=== PATIENT | female | born 1995 | race Caucasian/White ===

== ENCOUNTER 2017-09-08 06:40 | Day surgery (SDC) | payer OTHER ==
[2017-09-08] MEDS ORDERED: MIDAZOLAM 2 MG/2 ML INJ ONE (07:14)
[2017-09-08] MEDS ORDERED: SUCCINYLCHOLINE CHLORIDE INJ 200 MG/10 ML VIAL ONE (07:15)
[2017-09-08] MEDS ORDERED: LIDOCAINE 2% INJ-PF (20 MG/ML) 10 ML AMPUL ONE (07:15)
[2017-09-08] MEDS ORDERED: DEXAMETHASONE SOD PHOS INJ 10 MG/1 ML VIAL ONE (07:15)
[2017-09-08] MEDS ORDERED: ONDANSETRON HCL INJ/PF 4 MG/2 ML SDV ONE (07:15)
[2017-09-08] MEDS ORDERED: PROPOFOL INJ 200 MG/20 ML VIAL IV ONE (07:15)
[2017-09-08] MEDS ORDERED: FENTANYL CITRATE INJ/PF 100 MCG/2 ML AMPUL ONE (07:15)
[2017-09-08] MEDS ORDERED: BUPIVACAINE HCL 0.5%/EPI 1:200000 INJ 1.8 ML CARTRIDGE ONE (07:16)
[2017-09-08] MEDS ORDERED: OXYMETAZOLINE HCL 0.05% NASAL SPRAY 15 ML BOTTLE ONE (07:17)
[2017-09-08] MEDS ORDERED: OXYCODONE-ACETAMINOPHEN 5-325 MG TABLET ONE (08:53)
--- NOTE | 2017-09-08 20:19 | SURGICARE OPERATIVE REPORT E ---
[facility] Operative Report NAME: BORIS BOLAÑOS AGE: 22Y DATE OF SURGERY: 09/08/2017 ROOM: PREOPERATIVE DIAGNOSES: 1. RECURRENT ACUTE TONSILLITIS. 2. CHRONIC TONSILLITIS. 3. BILATERAL TONSILLAR HYPERTROPHY. POSTOPERATIVE DIAGNOSES: 1. RECURRENT ACUTE TONSILLITIS. 2. CHRONIC TONSILLITIS. 3. BILATERAL TONSILLAR HYPERTROPHY. OPERATION: Bilateral tonsillectomy, patient age greater than 12. SURGEON: DENISHA CARRILLO D.O. ANESTHESIA: General endotracheal tube. ANESTHESIA STAFF: TONY Garnica. ESTIMATED BLOOD LOSS: 5 mL. FLUIDS: 800 mL. COMPLICATIONS: None. DRAINS: None. SPONGE COUNT: Verified. MATERIALS FORWARDED SPECIMEN: Left and right tonsillar tissue. FINDINGS: 1. Tonsils were noted to be 2 to 3+ in size, were cryptic in appearance and tonsillar debris was noted bilateral. 2. The soft palatal tissues were redundant in nature and the uvula was otherwise unremarkable in appearance. INDICATIONS: This is a 22-year-old white female who was seen and evaluated in the [facility] office. The patient had been referred for and she complained of a history consistent with acute recurrent tonsillitis episodes each year, requiring antibiotic treatment over the years. With these episodes, she experiences significant sore throat discomfort and poor p.o. intake. The patient also has a history of chronic tonsillitis symptoms, with symptoms consistent with keratosis pharyngeus over the years. Clinically, the patient is also noted to have tonsillar hypertrophy. After extensive discussion with the patient, recommendation and plan was made to proceed with a tonsillectomy. The procedure and all of its risks and complications were all discussed in detail with the patient. She voiced an understanding of the described surgical plan, agreed to proceed and consent was obtained. PROCEDURE: The patient was taken to the main operating room and placed on the operating room table in the supine position. Appropriate monitors were placed. Using mask and IV access, general anesthesia was induced. The patient was next transorally intubated without difficulty. The patient was rotated 90 degrees and positioned for tonsil surgery. The patient's lips, teeth, tongue and inside of the mouth were inspected and noted to be without defects. There was a mouth gag inserted. It was opened, and the patient was placed into suspension. There was a soft catheter placed through the patient's nose that was used to suspend the soft palate. Findings are as noted above. An injection of Marcaine with epinephrine was used for local anesthetic. At this point, the plasma J-hook device was used to dissect and remove tonsillar tissue on each side. This device was also used to provide adequate hemostasis. Saline irritation was performed and suctioned. There was adequate hemostasis noted. The soft catheter was next released and removed from the patient's nose. The mouth gag was removed from the patient's mouth without difficulty. There was no damage to the lips, teeth, tongue, gums, or inside of the mouth. The patient was then returned to the anesthesia staff and was allowed to emerge from general anesthesia. The patient was extubated in the main operating room and was then transported to the post-anesthesia recovery unit in stable condition. There were no complications. DICTATING PHYSICIAN: DENISHA CARRILLO D.O. [id number] PHY#: [id number] ID: [id number] JOB#: [id number] ACCT: [id number] cc:DENISHA CARRILLO D.O. >
== END 2017-09-08 09:28 | disposition home or self-care (01) ==
LOC: SC 06:40
PROVIDERS: ATTEND Otolaryngology
PROC: 0CTPXZZ Resection of Tonsils, External Approach (ICD-10-PCS; principal; 2017-09-08 07:30)
DX: J03.91 Acute recurrent tonsillitis, unspecified (principal); J35.01 Chronic tonsillitis; G47.8 Other sleep disorders; R06.83 Snoring; D64.9 Anemia, unspecified
CPT/HCPCS: 88304 ×2; 42826; J2250; J3490 ×2; J3010; J0330; J2405; J2704; J1100; 170

== ENCOUNTER 2017-09-09 11:37 | Emergency (ER) | payer OTHER ==
[2017-09-09] MEDS ORDERED: ONDANSETRON 4 MG TAB.RAPDIS PO ONE (12:35)
--- NOTE | 2017-09-09 12:41 | ER Document Report ---
HPI - HPI Patient complains to provider of: Vomiting Pain Level: 4 Context: Patient is a 22-year-old female presenting to the emergency department for vomiting. Patient is 1 day status post tonsillectomy. Patient denies any bleeding. But is unable to tolerate any p.o.'s. No fever. Associated Symptoms: None Exacerbated by: Food Relieved by: Denies Similar symptoms previously: No Recently seen / treated by doctor: Yes - ROS Systems Reviewed and Negative: Yes All other systems reviewed and negative - EENT EENT: REPORTS: Sore Throat Past Medical History - General Information source: Patient, Relative - Social History Smoking Status: Never Smoker Frequency of alcohol use: None Lives with: Family Family History: Reviewed & Not Pertinent Patient has suicidal ideation: No Patient has homicidal ideation: No - Past Medical History Cardiac Medical History: Denies: Hx Heart Attack, Hx Hypertension Pulmonary Medical History: Denies: Hx Asthma Neurological Medical History: Denies: Hx Cerebrovascular Accident, Hx Seizures Renal/ Medical History: Denies: Hx Peritoneal Dialysis GI Medical History: Denies: Hx Hepatitis, Hx Hiatal Hernia, Hx Ulcer Infectious Medical History: Denies: Hx Hepatitis Past Surgical History: Reports: Hx Tonsillectomy. Denies: Hx Hysterectomy, Hx Mastectomy, Hx Open Heart Surgery, Hx Pacemaker Vertical Provider Document - CONSTITUTIONAL Agree With Documented VS: Yes Exam Limitations: No Limitations - INFECTION CONTROL TRAVEL OUTSIDE OF THE [place] IN LAST 30 DAYS: No - HEENT Notes: Cauterized surgical sites to posterior pharynx. No active bleeding - NECK Neck: Supple - RESPIRATORY Respiratory: Breath Sounds Normal, No Respiratory Distress O2 Sat by Pulse Oximetry: 98 - CARDIOVASCULAR Cardiovascular: Regular Rhythm, Tachycardia - GI/ABDOMEN Gastrointestinal: Abdomen Soft, Abdomen Non-Tender - NEURO Level of Consciousness: Awake, Alert, Appropriate Course - Re-evaluation Re-evalutation: 09/09/17 12:38 Patient is nontoxic, afebrile. No signs of sepsis or dehydration. No signs of abscess, Epiglottitis, or airway compromise. Patient able to swallow without difficulty. I will medicate symptomatically for nausea. Home care, close follow -up with ENT, and return to ED precautions discussed with patient. Patient agreeable with plan is stable for discharge 09/09/17 12:42 - Vital Signs Vital signs: Temp Pulse Resp BP Pulse Ox 99.2 F 101 H 18 128/66 H 98 09/09/17 11:47 09/09/17 11:47 09/09/17 11:47 09/09/17 11:47 09/09/17 11:47 Discharge - Discharge Clinical Impression: Vomiting Qualifiers: Vomiting type: unspecified Vomiting Intractability: non-intractable Nausea presence: with nausea Qualified Code(s): R11.2 - Nausea with vomiting, unspecified Condition: Stable Disposition: HOME, SELF-CARE Instructions: Antinausea Medication ([facility]) Additional Instructions: Please take antinausea medicine as prescribed Follow-up with your ENT as scheduled Return to ER for any worsening Prescriptions: Ondansetron [Zofran Odt 4 mg Tablet] 1 - 2 tab PO Q4H #20 tab.juancarlos
[2017-09-09 12:49] VITALS: BP 115/69
== END 2017-09-09 12:48 | disposition home or self-care (01) ==
LOC: ER 11:37
DX: R11.2 Nausea with vomiting, unspecified (principal); Z98.890 Other specified postprocedural states; Z90.89 Acquired absence of other organs
CPT/HCPCS: 99283; S0119

== ENCOUNTER 2019-03-01 03:21 | Emergency (ER) | payer OTHER ==
--- NOTE | 2019-03-01 04:12 | ER Document Report ---
ED GI/ - General Chief Complaint: Vaginal Bleeding Stated Complaint: VAGINAL BLEEDING Time Seen by Provider: 03/01/19 03:49 Primary Care Provider: JOSEFINA BRAXTON CNM [CERTIFIED NURSE SALES ATTENDANT] - Follow up as needed Mode of Arrival: Ambulatory Information source: Patient Notes: Patient is an otherwise healthy 23-year-old female presenting to the emergency department chief complaint of vaginal bleeding. Patient reports she has always had heavy periods her whole life. She states that lately her periods have been getting heavier. She states that she is seeing a [facility] provider who started her on Provera a few weeks ago. She states that initially this slowed her bleeding down but lately her bleeding has increased. She reports she is changing approximately 10 tampons per day for the last 24 hours. She denies any dizziness or syncope. TRAVEL OUTSIDE OF THE [place] IN LAST 30 DAYS: No - Related Data Allergies/Adverse Reactions: No Known Allergies Allergy (Verified 09/09/17 11:42) Past Medical History - General Information source: Patient Last Menstrual Period: "THURSDAY" - Social History Smoking Status: Never Smoker Chew tobacco use (# tins/day): No Frequency of alcohol use: Social Drug Abuse: None Family History: Reviewed & Not Pertinent Patient has suicidal ideation: No Patient has homicidal ideation: No - Medical History Medical History: Negative - Past Medical History Cardiac Medical History: Denies: Hx Heart Attack, Hx Hypertension Pulmonary Medical History: Denies: Hx Asthma Neurological Medical History: Denies: Hx Cerebrovascular Accident, Hx Seizures Renal/ Medical History: Denies: Hx Peritoneal Dialysis GI Medical History: Denies: Hx Hepatitis, Hx Hiatal Hernia, Hx Ulcer Infectious Medical History: Denies: Hx Hepatitis Past Surgical History: Reports: Hx Tonsillectomy. Denies: Hx Hysterectomy, Hx Mastectomy, Hx Open Heart Surgery, Hx Pacemaker - Immunizations Immunizations up to date: Yes Review of Systems - Review of Systems Constitutional: No symptoms reported EENT: No symptoms reported Cardiovascular: No symptoms reported Respiratory: No symptoms reported Gastrointestinal: No symptoms reported Genitourinary: No symptoms reported Female Genitourinary: Vaginal bleeding Musculoskeletal: No symptoms reported Skin: No symptoms reported Hematologic/Lymphatic: No symptoms reported Neurological/Psychological: No symptoms reported Physical Exam - Vital signs Vitals: Temp Pulse Resp BP Pulse Ox 98.3 F 102 H 14 138/76 H 99 03/01/19 03:27 03/01/19 03:27 03/01/19 03:27 03/01/19 03:27 03/01/19 03:27 - Notes Notes: PHYSICAL EXAMINATION: GENERAL: Well-appearing, well-nourished and in no acute distress. HEAD: Atraumatic, normocephalic. EYES: Pupils equal round and reactive to light, extraocular movements intact, conjunctiva are normal. ENT: Nares patent, oropharynx clear without exudates. Moist mucous membranes. NECK: Normal range of motion, supple without lymphadenopathy LUNGS: Breath sounds clear to auscultation bilaterally and equal. No wheezes r ales or rhonchi. HEART: Regular rate and rhythm without murmurs ABDOMEN: Soft, nontender, nondistended abdomen. No guarding, no rebound. No masses appreciated. Female : Normal external genitalia, no cervical motion tenderness or adnexal tenderness, mild amount of bleeding from the cervix. Musculoskeletal: Normal range of motion, no pitting or edema. No cyanosis. NEUROLOGICAL: Cranial nerves grossly intact. Normal speech, normal gait. Normal sensory, motor exams PSYCH: Normal mood, normal affect. SKIN: Warm, Dry, normal turgor, no rashes or lesions noted. Course - Re-evaluation Re-evalutation: 03/01/19 06:03 Patient appears well, nontoxic and vital signs are within normal limits. Her hemoglobin and hematocrit are within normal limits, her ultrasound is unremarkable. Plan to discharge her home with plans to continue taking the Provera. She has an appointment scheduled for [facility] for 3 days from now. I enco uraged her to please keep this appointment. I did discuss strict ED return precautions and patient and at bedside verbalized understanding and agreement with this plan. Laboratory 03/01/19 03/01/19 03/01/19 04:08 04:08 04:23 WBC 12.5 H RBC 4.27 Hgb 9.7 L Hct 30.3 L MCV 71 L MCH 22.8 L MCHC 32.0 RDW 15.7 H Plt Count 415 Lymph % (Auto) 21.5 Archer % (Auto) 5.7 Eos % (Auto) 1.9 Baso % (Auto) 0.2 Absolute Neuts (auto) 8.8 H Absolute Lymphs (auto) 2.7 Absolute Monos (auto) 0.7 Absolute Eos (auto) 0.2 Absolute Basos (auto) 0.0 Seg Neutrophils % 70.7 Sodium Potassium Chloride Carbon Dioxide Anion Gap BUN Creatinine Est GFR ( Amer) Est GFR (MDRD) Non-Af Glucose Calcium Total Bilirubin Direct Bilirubin Neonat Total Bilirubin Neonat Direct Bilirubin Neonat Indirect Bili AST ALT Alkaline Phosphatase Total Protein Albumin Serum HCG, Qual Urine Color Urine Appearance Urine pH Ur Specific Mcbee Urine Protein Urine Glucose (UA) Urine Ketones Urine Blood Urine Nitrite Urine Bilirubin Urine Urobilinogen Ur Leukocyte Esterase Urine WBC (Auto) Urine RBC (Auto) Squamous Epi Cells Auto Urine Mucus (Auto) Urine Ascorbic Acid Trichomonas (Wet Prep) NO TRICHOMONAS SEEN Vaginal WBC FEW WBCS SEEN Vaginal RBC 4+ RBCS SEEN Vaginal Yeast NO YEAST SEEN Chlamydia DNA (PCR) NOT DETECTED N.gonorrhoeae DNA (PCR) NOT DETECTED 03/01/19 03/01/19 03/01/19 04:23 04:23 04:45 WBC RBC Hgb Hct MCV MCH MCHC RDW Plt Count Lymph % (Auto) Archer % (Auto) Eos % (Auto) Baso % (Auto) Absolute Neuts (auto) Absolute Lymphs (auto) Absolute Monos (auto) Absolute Eos (auto) Absolute Basos (auto) Seg Neutrophils % Sodium 139.1 Potassium 4.2 Chloride 109 H Carbon Dioxide 21 L Anion Gap 9 BUN 9 Creatinine 0.66 Est GFR ( Amer) > 60 Est GFR (MDRD) Non-Af > 60 Glucose 106 Calcium 9.1 Total Bilirubin 0.3 Direct Bilirubin 0.3 Neonat Total Bilirubin Not Reportable Neonat Direct Bilirubin Not Reportable Neonat Indirect Bili Not Reportable AST 16 ALT 12 Alkaline Phosphatase 82 Total Protein 6.8 Albumin 3.8 Serum HCG, Qual NEGATIVE Urine Color RED Urine Appearance SLIGHTLY-CLOUDY Urine pH 6.0 Ur Specific Mcbee 1.013 Urine Protein 30 H Urine Glucose (UA) NEGATIVE Urine Ketones NEGATIVE Urine Blood LARGE H Urine Nitrite NEGATIVE Urine Bilirubin NEGATIVE Urine Urobilinogen NEGATIVE Ur Leukocyte Esterase NEGATIVE Urine WBC (Auto) >182 Urine RBC (Auto) >182 Squamous Epi Cells Auto 2 Urine Mucus (Auto) MANY Urine Ascorbic Acid NEGATIVE Trichomonas (Wet Prep) Vaginal WBC Vaginal RBC Vaginal Yeast Chlamydia DNA (PCR) N.gonorrhoeae DNA (PCR) Transvaginal US 03/01/19 04:19 IMPRESSION: Unremarkable pelvic ultrasound copyright 2011 [employer]- All Rights Reserved - Vital Signs Vital signs: Temp Pulse Resp BP Pulse Ox 98.3 F 102 H 14 138/76 H 99 03/01/19 03:27 03/01/19 03:27 03/01/19 03:27 03/01/19 03:27 03/01/19 03:27 - Laboratory Result Diagrams: 03/01/19 04:23 03/01/19 04:23 Laboratory results interpreted by me: 03/01/19 03/01/19 03/01/19 04:23 04:23 04:45 WBC 12.5 H Hgb 9.7 L Hct 30.3 L MCV 71 L MCH 22.8 L RDW 15.7 H Absolute Neuts (auto) 8.8 H Chloride 109 H Carbon Dioxide 21 L Urine Protein 30 H Urine Blood LARGE H Discharge - Discharge Clinical Impression: Dysfunctional vaginal bleeding Condition: Stable Disposition: HOME, SELF-CARE Additional Instructions: You were seen today for dysfunctional uterine bleeding. This is when you have vaginal bleeding and abdominal cramping off of your normal menstrual cycle. Please continue taking the Provera that your [facility] started you on. Please keep the appointment you have with them for Thursday. Return immediately if you worsening pain, you began bleeding through more than 2 pads per hour for more than 3 hours, you pass out, have persistent vomiting, develop a fever greater than 100.4F, or any other symptoms that are concerning to you. Referrals: JOSEFINA BRAXTON CNM [CERTIFIED NURSE SALES ATTENDANT] - Follow up as needed
[2019-03-01 04:24] LABS: RBCS (WET MOUNT) 4+ RBCS SEEN; T.VAGINALIS (WET MOUNT) NO TRICHOMONAS SEEN; WBCS (WET MOUNT) FEW WBCS SEEN; YEAST (WET MOUNT) NO YEAST SEEN
[2019-03-01 04:36] LABS: ABSOLUTE EOSINOPHILS # (AUTO) 0.2 10^3/uL (0.0-0.6); ABSOLUTE LYMPHOCYTES (AUTO) 2.7 10^3/uL (0.5-4.7); ABSOLUTE MONOCYTES (AUTO) 0.7 10^3/uL (0.1-1.4); ABSOLUTE NEUT (AUTO) 8.8 10^3/uL (1.7-8.2); BASOPHILS % (AUTO) 0.2 % (0-2); EOSINOPHILS % (AUTO) 1.9 % (0-6); HEMATOCRIT 30.3 % (36.0-47.0); HEMOGLOBIN 9.7 g/dL (12.0-15.5); LYMPHOCYTES % (AUTO) 21.5 % (13-45); MEAN CORPUSCULAR HEMOGLOBIN 22.8 pg (27.0-33.4); MEAN CORPUSCULAR VOLUME 71 fl (80-97); MONOCYTES % (AUTO) 5.7 % (3-13); PLATELET COUNT 415 10^3/uL (150-450); RED BLOOD COUNT 4.27 10^6/uL (3.72-5.28); RED CELL DISTRIBUTION WIDTH 15.7 % (11.5-14.0); SEGMENTED NEUTROPHILS % (AUTO) 70.7 % (42-78); TOTAL CELLS COUNTED % (AUTO) 100 %; WHITE BLOOD COUNT 12.5 10^3/uL (4.0-10.5)
[2019-03-01 05:02] LABS: ALBUMIN 3.8 g/dL (3.5-5.0); ALKALINE PHOSPHATASE 82 U/L (38-126); ANION GAP 9 (5-19); ASPARTATE AMINO TRANSFERASE 16 U/L (14-36); BILIRUBIN,DIRECT 0.3 mg/dL (0.0-0.4); BILIRUBIN,TOTAL 0.3 mg/dL (0.2-1.3); BLOOD UREA NITROGEN 9 mg/dL (7-20); CALCIUM 9.1 mg/dL (8.4-10.2); CARBON DIOXIDE 21 mmol/L (22-30); CHLORIDE 109 mmol/L (98-107); GLUCOSE 106 mg/dL (75-110); POTASSIUM 4.2 mmol/L (3.6-5.0); TOTAL PROTEIN 6.8 g/dL (6.3-8.2)
[2019-03-01 05:15] LABS: APPEARANCE,URINE SLIGHTLY-CLOUDY; BILIRUBIN,URINE NEGATIVE (NEGATIVE); GLUCOSE, URINE NEGATIVE (NEGATIVE); KETONES,URINE NEGATIVE (NEGATIVE); LEUKOCYTE ESTERASE,URINE NEGATIVE (NEGATIVE); NITRITE,URINE NEGATIVE (NEGATIVE); PROTEIN,URINE 30 mg/dL (NEGATIVE); URINE SPECIFIC GRAVITY 1.013; UROBILINOGEN,URINE NEGATIVE mg/dL (<2.0)
[2019-03-01 05:16] LABS: COLOR,URINE RED
--- NOTE | 2019-03-01 05:22 | RADIOLOGY REPORT (SQ) ---
EXAM DESCRIPTION: US PELVIS TRANSVAGINAL COMPLETED DATE/TME: 03/01/2019 04:19 CLINICAL HISTORY: 23 years, Female, vag bleed COMPARISON: None. TECHNIQUE: Transverse and longitudinal transvaginal sonographic images of the pelvis LIMITATIONS: None. FINDINGS: The uterus measures 10.5 x 4.9 x 4.3 cm. The myometrium is homogenous. The endometrium measures 5.9 mm. The right ovary measures 6.9 x 2.9 x 3.4 cm, left ovary measures 4.4 x 2.8 x 3.5 cm. Arterial and venous flow to each ovary. No adnexal cyst or mass. No free fluid IMPRESSION: Unremarkable pelvic ultrasound copyright 2010 [employer]- All Rights Reserved
[2019-03-01 05:48] LABS: CHLAM PCR NOT DETECTED (NOT DETECT)
[2019-03-01 06:19] VITALS: BP 134/84
== END 2019-03-01 06:17 | disposition home or self-care (01) ==
LOC: ER 03:21
DX: N93.8 Other specified abnormal uterine and vaginal bleeding (principal)
CPT/HCPCS: 36415; 76830; 80053; 81001; 84703; 85025; 87210; 87491; 87591; 93976; 99284

== ENCOUNTER 2019-03-31 07:32 | Day surgery (SDC) | payer OTHER ==
[2019-03-30 09:51] LABS: HEMATOCRIT 29.7 % (36.0-47.0); HEMOGLOBIN 9.2 g/dL (12.0-15.5); MEAN CORPUSCULAR HGB CONC 30.9 g/dL (32.0-36.0); MEAN CORPUSCULAR VOLUME 68 fl (80-97); PLATELET COUNT 428 10^3/uL (150-450); RED BLOOD COUNT 4.36 10^6/uL (3.72-5.28); RED CELL DISTRIBUTION WIDTH 17.6 % (11.5-14.0); WHITE BLOOD COUNT 9.2 10^3/uL (4.0-10.5)
[2019-03-30 10:04] LABS: APPEARANCE,URINE CLEAR; BILIRUBIN,URINE NEGATIVE (NEGATIVE); COLOR,URINE YELLOW; GLUCOSE, URINE NEGATIVE (NEGATIVE); KETONES,URINE NEGATIVE (NEGATIVE); LEUKOCYTE ESTERASE,URINE NEGATIVE (NEGATIVE); NITRITE,URINE NEGATIVE (NEGATIVE); PROTEIN,URINE NEGATIVE (NEGATIVE); URINE SPECIFIC GRAVITY 1.012; UROBILINOGEN,URINE NEGATIVE mg/dL (<2.0)
[2019-03-30 10:18] LABS: ALKALINE PHOSPHATASE 64 U/L (38-126); ANION GAP 11 (5-19); ASPARTATE AMINO TRANSFERASE 13 U/L (14-36); BILIRUBIN,DIRECT 0.1 mg/dL (0.0-0.4); BILIRUBIN,TOTAL 0.2 mg/dL (0.2-1.3); BLOOD UREA NITROGEN 8 mg/dL (7-20); CALCIUM 9.4 mg/dL (8.4-10.2); CARBON DIOXIDE 22 mmol/L (22-30); CHLORIDE 107 mmol/L (98-107); GLUCOSE 109 mg/dL (75-110); POTASSIUM 4.6 mmol/L (3.6-5.0); TOTAL PROTEIN 7.1 g/dL (6.3-8.2)
[2019-03-31] MEDS ORDERED: BUPIVACAINE HCL 0.25 % INJ/PF (2.5 MG/1 ML) 30 ML VIAL ONE (08:08)
[2019-03-31] MEDS ORDERED: CEFAZOLIN SODIUM 2 GM in DEXTROSE 5%-WATER 100 ML IV PRN (08:30)
[2019-03-31] MEDS ORDERED: HYDROMORPHONE HCL INJ/PF 2 MG/ML AMPULE ONE (09:41)
[2019-03-31] MEDS ORDERED: FENTANYL CITRATE INJ/PF 250 MCG/5 ML AMPULE ONE (09:41)
[2019-03-31] MEDS ORDERED: MIDAZOLAM 2 MG/2 ML INJ ONE (09:41)
[2019-03-31] MEDS ORDERED: PROPOFOL INJ 200 MG/20 ML VIAL IV ONE (09:41)
[2019-03-31] MEDS ORDERED: ROCURONIUM BROMIDE INJ 50 MG/5 ML VIAL IV ONE (10:00)
[2019-03-31] MEDS ORDERED: KETOROLAC TROMETHAMINE 60 MG/2 ML SDV ONE (10:00)
[2019-03-31] MEDS ORDERED: ONDANSETRON HCL INJ/PF 4 MG/2 ML SDV ONE (10:00)
[2019-03-31] MEDS ORDERED: SUCCINYLCHOLINE CHLORIDE INJ 200 MG/10 ML VIAL ONE (10:00)
[2019-03-31] MEDS ORDERED: METOCLOPRAMIDE HCL INJ/PF 10 MG/2 ML SDV ONE (10:00)
[2019-03-31] MEDS ORDERED: LIDOCAINE 2% INJ-PF (20 MG/ML) 2 ML AMPUL ONE (10:00)
[2019-03-31] MEDS ORDERED: DEXAMETHASONE SOD PHOSPHATE INJ 4 MG/1 ML VIAL ONE (10:00)
[2019-03-31] MEDS ORDERED: ONDANSETRON HCL INJ/PF 4 MG/2 ML SDV IV PRN (10:34)
[2019-03-31] MEDS ORDERED: FENTANYL CITRATE INJ/PF 100 MCG/2 ML AMPUL IV PRN ×3 (10:34)
[2019-03-31] MEDS ORDERED: DIPHENHYDRAMINE HCL 50 MG/ML VIAL IV PRN (10:34)
[2019-03-31] MEDS ORDERED: OXYCODONE-ACETAMINOPHEN 5-325 MG TABLET PO PRN ×3 (10:34→12:28)
[2019-03-31] MEDS ORDERED: MORPHINE SULFATE 10 MG/ML INJ IV PRN (10:34)
[2019-03-31] MEDS ORDERED: PROMETHAZINE HCL INJ 25 MG/1 ML VIAL IV PRN (10:34)
[2019-03-31] MEDS ORDERED: MEPERIDINE HCL/PF INJ 25 MG/1 ML DISP.SYRIN IV PRN (10:34)
[2019-03-31] MEDS ORDERED: BUPIVACAINE HCL 0.25 % INJ/PF (2.5 MG/1 ML) 30 ML VIAL INJ ONE (10:36)
--- NOTE | 2019-03-31 11:40 | Operative Report ---
Operative Report DATE OF SURGERY: 03/31/19 PREOPERATIVE DIAGNOSIS: Pelvic pain with hypermenorrhea POSTOPERATIVE DIAGNOSIS: Same OPERATION: LAVH bilateral salpingectomy SURGEON: GAYLA VALENZUELA 1ST SAFETY REPRESENTATIVE: ELEONORA NAVARRO ANESTHESIA: GA TISSUE REMOVED OR ALTERED: Uterus and bilateral tubes COMPLICATIONS: None ESTIMATED BLOOD LOSS: Approximately 100 cc INTRAOPERATIVE FINDINGS: Ovaries appear to be within normal limits no evidence of endometriosis or no other overt pathology was noted. PROCEDURE: The patient was taken to the operating room where general anesthesia was obtained. The patient was then prepped and placed in the dorsal supine position with lithotomy and prepped and draped in the usual fashion. A speculum was then placed in the patient's vagina and the cervix grasped with a single-tooth tenaculum at approximately the 12 o'clock position of the anterior lip of the cervix. Hulka tenaculum placed in [place]. Vaginal was then turned to the abdomen where an infraumbilical skin incision was made, and the Trocar inserted into the abdominal cavity. The abdomen was insufflated with carbon dioxide approximately 4 L. Survey of the patient's abdomen and pelvis were performed with findings as noted above. At this time 5mm skin incisions were made approximately 2 cm medial and 4 cm superior to the anterior iliac spine on the left. 5 mm trochars placed. At this time the right cornua was grasped and the right and left tubes were removed along the mesosalpinx using the harmonic scalpel, the remainder of the uterine vessels in anterior and posterior leaves of the broad ligament as well as cardinal and uterosacral ligaments were coagulated and transected in a serial fashion down to the level of the uterine artery. The uterine artery was then identified and cauterized and transected in the usual fashion with the Harmonic device. Incisions continued down to the broad ligament bilaterally to the ascending branch of the uterine artery. Abdomen deflated and instruments removed. Attention turned to the pelvic - speculum in place and Hulka tenaculum removed . Posterior cul-de-sac entered with sharp incision. Posterior parieta peritoneum sutured to the posterior cuff with 2-0 Vicryl . Left uterus sacral ligament clamped and divided. The anterior with 2-0 Vicryl and held with a hemostat. Repeated on the right. Cervix sharply circumscribed at anterior perineum entered sharply. Serial clamps applied to broad ligament serially and divided until the superior incisions were encountered and at the [ tubes and ovaries] removed. Pedicles were inspected and hemostasis noted. The cuff was then closed with interrupted 2-0 Vicryl. Hemostasis noted. Spectrum removed. Urine to make clear during the procedure. Procedure terminated and patient awakened , and taken to recovery room.
[2019-03-31] MEDS ORDERED: FENTANYL CITRATE INJ/PF 100 MCG/2 ML AMPUL ONE (11:55)
[2019-03-31] MEDS ORDERED: PROMETHAZINE HCL INJ 25 MG/1 ML VIAL ONE (11:55)
[2019-03-31] MEDS ORDERED: ONDANSETRON HCL 8 MG TABLET PO PRN (12:28)
[2019-03-31] MEDS ORDERED: PROMETHAZINE HCL INJ 25 MG/1 ML VIAL IV ONE (14:00)
[2019-03-31] MEDS: MORPHINE SULFATE 10 MG/ML INJ IV ONE ×2 (14:00→17:09)
[2019-03-31] MEDS ORDERED: IBUPROFEN 800 MG TABLET PO SCH (14:00)
[2019-03-31 16:54] VITALS: BP 109/61
[2019-03-31] MEDS ORDERED: INFLUENZA QUAD (6MOS+) 2019-20 VAC 0.5 ML SYR IM ONE (17:15)
[2019-04-01] MEDS ORDERED: INFLUENZA QUAD (6MOS+) 2019-20 VAC 0.5 ML SYR IM ONE (08:00)
== END 2019-03-31 17:50 | disposition home or self-care (01) ==
LOC: OROUT 07:32 → 2S 12:55 → OROUT 17:50
PROVIDERS: ATTEND Obstetrics & Gynecology Gynecology
DX: N92.0 Excessive and frequent menstruation with regular cycle (principal); N87.0 Mild cervical dysplasia; N72 Inflammatory disease of cervix uteri; R10.2 Pelvic and perineal pain; E66.9 Obesity, unspecified; D64.9 Anemia, unspecified; Z68.42 Body mass index [BMI] 45.0-49.9, adult; Z23 Encounter for immunization
CPT/HCPCS: 86900; 86901; 36415; 86850; 84703; 85027; 81025; 80053; 81001; 88307 ×2; 90686; 00944; 58552; 90471; J2250; J0690; J3490 ×2; J1100; J1885; J3010; J2765; J1170; J2550; J0330; J2405; J7060; J2704; 944; J2270

== ENCOUNTER 2019-09-03 09:03 | Emergency (ER) | payer OTHER ==
--- NOTE | 2019-09-03 09:19 | ER Document Report ---
ED Medical Screen (RME) - General Chief Complaint: Flank Pain Stated Complaint: ABDOMINAL PAIN Time Seen by Provider: 09/03/19 09:16 Mode of Arrival: Ambulatory Information source: Patient Notes: 24-year-old female presented to ED for complaint of right flank pain that started 4-6 last night. She states she has nausea but no vomiting no diarrhea. He states her pain is a 3-4, 4 when it stabbing 3 right this minute. The pains are very sharp radiating to the back. She states she has had a hysterectomy partial. She socially drinks no smoking and no drugs. Denies any past medical but has had a hysterectomy and a tonsillectomy. I have greeted and performed a rapid initial assessment of this patient. A comprehensive ED assessment and evaluation of the patient, analysis of test results and completion of medical decision making process will be conducted by an additional ED providers. TRAVEL OUTSIDE OF THE [place] IN LAST 30 DAYS: No - Related Data Allergies/Adverse Reactions: No Known Allergies Allergy (Verified 09/03/19 09:09) Past Medical History - Social History Frequency of alcohol use: Social Drug Abuse: None - Past Medical History Cardiac Medical History: Denies: Hx Coronary Artery Disease, Hx Heart Attack, Hx Hypertension Pulmonary Medical History: Denies: Hx Asthma, Hx Bronchitis, Hx COPD, Hx Pneumonia Neurological Medical History: Denies: Hx Cerebrovascular Accident, Hx Seizures Renal/ Medical History: Denies: Hx Peritoneal Dialysis GI Medical History: Denies: Hx Hepatitis, Hx Hiatal Hernia, Hx Ulcer Musculoskeltal Medical History: Denies Hx Arthritis Infectious Medical History: Denies: Hx Hepatitis Past Surgical History: Reports: Hx Tonsillectomy. Denies: Hx Hysterectomy, Hx Mastectomy, Hx Open Heart Surgery, Hx Pacemaker - Immunizations Immunizations up to date: Yes Hx Diphtheria, Pertussis, Tetanus Vaccination: No Physical Exam - Vital signs Vitals: Temp Pulse Resp BP Pulse Ox 97.7 F 99 16 135/75 H 99 09/03/19 09:08 09/03/19 09:08 09/03/19 09:08 09/03/19 09:08 09/03/19 09:08 Course - Vital Signs Vital signs: Temp Pulse Resp BP Pulse Ox 97.7 F 99 16 135/75 H 99 09/03/19 09:08 09/03/19 09:08 09/03/19 09:08 09/03/19 09:08 09/03/19 09:08
[2019-09-03 10:00] LABS: APPEARANCE,URINE SLIGHTLY-CLOUDY; BILIRUBIN,URINE NEGATIVE (NEGATIVE); COLOR,URINE YELLOW; GLUCOSE, URINE NEGATIVE (NEGATIVE); KETONES,URINE NEGATIVE (NEGATIVE); PROTEIN,URINE NEGATIVE (NEGATIVE); URINE SPECIFIC GRAVITY 1.016; UROBILINOGEN,URINE NEGATIVE mg/dL (<2.0)
[2019-09-03 10:02] LABS: ABSOLUTE EOSINOPHILS # (AUTO) 0.2 10^3/uL (0.0-0.6); ABSOLUTE LYMPHOCYTES (AUTO) 2.2 10^3/uL (0.5-4.7); ABSOLUTE MONOCYTES (AUTO) 0.7 10^3/uL (0.1-1.4); ABSOLUTE NEUT (AUTO) 8.8 10^3/uL (1.7-8.2); BASOPHILS % (AUTO) 0.3 % (0-2); EOSINOPHILS % (AUTO) 1.7 % (0-6); HEMATOCRIT 34.4 % (36.0-47.0); HEMOGLOBIN 10.9 g/dL (12.0-15.5); LYMPHOCYTES % (AUTO) 18.5 % (13-45); MEAN CORPUSCULAR HEMOGLOBIN 20.2 pg (27.0-33.4); MEAN CORPUSCULAR HGB CONC 31.7 g/dL (32.0-36.0); MONOCYTES % (AUTO) 5.7 % (3-13); PLATELET COUNT 470 10^3/uL (150-450); RED BLOOD COUNT 5.42 10^6/uL (3.72-5.28); RED CELL DISTRIBUTION WIDTH 19.6 % (11.5-14.0); SEGMENTED NEUTROPHILS % (AUTO) 73.8 % (42-78); TOTAL CELLS COUNTED % (AUTO) 100 %; WHITE BLOOD COUNT 11.9 10^3/uL (4.0-10.5)
[2019-09-03 10:08] LABS: ALBUMIN 4.1 g/dL (3.5-5.0); ALKALINE PHOSPHATASE 92 U/L (38-126); ANION GAP 12 (5-19); ASPARTATE AMINO TRANSFERASE 19 U/L (14-36); BILIRUBIN,DIRECT 0.2 mg/dL (0.0-0.4); BILIRUBIN,TOTAL 0.3 mg/dL (0.2-1.3); BLOOD UREA NITROGEN 7 mg/dL (7-20); CALCIUM 9.4 mg/dL (8.4-10.2); CARBON DIOXIDE 23 mmol/L (22-30); CHLORIDE 105 mmol/L (98-107); GLUCOSE 98 mg/dL (75-110); POTASSIUM 4.3 mmol/L (3.6-5.0); TOTAL PROTEIN 7.5 g/dL (6.3-8.2)
[2019-09-03 10:09] LABS: MEAN CORPUSCULAR VOLUME 64 fl (80-97)
[2019-09-03] MEDS ORDERED: HYDROCODONE/ACETAMINOPHEN 5-325 MG TABLET PO ONE (10:15)
[2019-09-03] MEDS ORDERED: ONDANSETRON 4 MG TAB.RAPDIS PO ONE (10:16)
--- NOTE | 2019-09-03 10:18 | ER Document Report ---
ED GI/ - General Chief Complaint: Flank Pain Stated Complaint: ABDOMINAL PAIN Time Seen by Provider: 09/03/19 09:16 Mode of Arrival: Ambulatory Information source: Patient Notes: Patient presents complaining of right lateral side pain that started yesterday. Patient reports nausea. Patient denies any vomiting or diarrhea. Patient denies any urinary symptoms. TRAVEL OUTSIDE OF THE [place] IN LAST 30 DAYS: No - HPI Patient complains to provider of: Abdominal pain, Flank pain Onset: Yesterday Timing/Duration: Gradual Quality of pain: Stabbing Pain Level: 4 Location: Right flank, Other - Right lateral side Vaginal bleeding (Compared to normal period): None Associated symptoms: denies: Diarrhea, Dysuria, Fever, Urinary hesitancy, Urinary frequency, Vaginal discharge, Vomiting - Related Data Allergies/Adverse Reactions: No Known Allergies Allergy (Verified 09/03/19 09:09) Past Medical History - General Information source: Patient - Social History Smoking Status: Never Smoker Frequency of alcohol use: Social Drug Abuse: None Occupation: office Lives with: Spouse/Significant other Family History: Reviewed & Not Pertinent Patient has suicidal ideation: No Patient has homicidal ideation: No - Medical History Medical History: Negative Neurological Medical History: Denies: Hx Cerebrovascular Accident, Hx Seizures Renal/ Medical History: Denies: Hx Peritoneal Dialysis Infectious Medical History: Denies: Hx Hepatitis Past Surgical History: Reports: Hx Hysterectomy - partial, Hx Tonsillectomy - Immunizations Immunizations up to date: Yes Hx Diphtheria, Pertussis, Tetanus Vaccination: No Review of Systems - Review of Systems Constitutional: No symptoms reported. denies: Fever, Recent illness EENT: No symptoms reported Cardiovascular: No symptoms reported. denies: Chest pain Respiratory: No symptoms reported. denies: Cough Gastrointestinal: Abdominal pain, Nausea. denies: Diarrhea, Vomiting Genitourinary: Flank pain. denies: Dysuria, Hematuria Female Genitourinary: No symptoms reported Musculoskeletal: Back pain Skin: No symptoms reported Hematologic/Lymphatic: No symptoms reported Neurological/Psychological: No symptoms reported Physical Exam - Vital signs Vitals: Temp Pulse Resp BP Pulse Ox 97.7 F 99 16 135/75 H 99 09/03/19 09:08 09/03/19 09:08 09/03/19 09:08 09/03/19 09:08 09/03/19 09:08 - General General appearance: Appears well, Alert In distress: None - HEENT Head: Normocephalic, Atraumatic Eyes: Normal Conjunctiva: Normal Nasal: Normal Mouth/Lips: Normal Mucous membranes: Normal Neck: Normal, Supple. No: Lymphadenopathy - Respiratory Respiratory status: No respiratory distress Chest status: Nontender Breath sounds: Normal. No: Rales, Rhonchi, Stridor, Wheezing Chest palpation: Normal - Cardiovascular Rhythm: Regular Heart sounds: S1 appreciated, S2 appreciated Murmur: No - Abdominal Inspection: Morbidly Obese Distension: No distension Bowel sounds: Normal Tenderness: Tender - right lateral side - Back Back: CVA tenderness - right - Extremities General upper extremity: Normal inspection, Normal strength General lower extremity: Normal inspection, Normal strength - Neurological Neuro grossly intact: Yes Cognition: Normal [place] Coma Scale Eye Opening: Spontaneous [place] Coma Scale Verbal: Oriented [place] Coma Scale Motor: Obeys Commands Dominic Coma Scale Total: 15 - Psychological Associated symptoms: Normal affect, Normal mood - Skin Skin Temperature: Warm Skin Moisture: Dry Skin Color: Normal Course - Re-evaluation Re-evalutation: 09/03/19 11:[address] Tello regarding patient presentation and diagnostic evaluation. Reviewed labs as well as CT scan report results. Patient presents with right flank and lateral side tenderness. Patient with some leukocytosis esterase noted on urinalysis, will cover for UTI. Patient presents with abdominal pain without signs of peritonitis or other life-threatening or serious etiology. Patient appears stable for discharge and has been instructed to return immediately if the symptoms worsen in any way, or in 8-12 hours if not improved for reevaluation. The patient has been instructed to return if the symptoms worsen or change in any way. - Vital Signs Vital signs: Temp Pulse Resp BP Pulse Ox 97.7 F 99 16 135/75 H 99 09/03/19 09:08 09/03/19 09:08 09/03/19 09:08 09/03/19 09:08 09/03/19 09:08 - Laboratory Result Diagrams: 09/03/19 09:30 09/03/19 09:30 Laboratory results interpreted by me: 09/03/19 09/03/19 09/03/19 09:30 09:30 09:30 WBC 11.9 H RBC 5.42 H Hgb 10.9 L Hct 34.4 L MCV 64 L MCH 20.2 L MCHC 31.7 L RDW 19.6 H Plt Count 470 H Absolute Neuts (auto) 8.8 H Creatinine 0.47 L Leukocyte Esterase Rfl MODERATE H 09/03/19 11:25 Labs- Entire Visit 09/03/19 09/03/19 09/03/19 09:30 09:30 09:30 WBC 11.9 H RBC 5.42 H Hgb 10.9 L Hct 34.4 L MCV 64 L MCH 20.2 L MCHC 31.7 L RDW 19.6 H Plt Count 470 H Lymph % (Auto) 18.5 [place] % (Auto) 5.7 Eos % (Auto) 1.7 Baso % (Auto) 0.3 Absolute Neuts (auto) 8.8 H Absolute Lymphs (auto) 2.2 Absolute Monos (auto) 0.7 Absolute Eos (auto) 0.2 Absolute Basos (auto) 0.0 Seg Neutrophils % 73.8 Platelet Comment ADEQUATE Polychromasia SLIGHT Hypochromasia 2+ Poikilocytosis SLIGHT Anisocytosis 2+ Microcytosis 3+ Ovalocytes SLIGHT Sodium 139.6 Potassium 4.3 Chloride 105 Carbon Dioxide 23 Anion Gap 12 BUN 7 Creatinine 0.47 L Est GFR ( Amer) > 60 Est GFR (MDRD) Non-Af > 60 Glucose 98 Calcium 9.4 Total Bilirubin 0.3 Direct Bilirubin 0.2 Neonat Total Bilirubin Not Reportable Neonat Direct Bilirubin Not Reportable Neonat Indirect Bili Not Reportable AST 19 ALT 18 Alkaline Phosphatase 92 Total Protein 7.5 Albumin 4.1 Lipase 68.1 Urine Color YELLOW Urine Appearance SLIGHTLY-CLOUDY Urine pH 6.0 Ur Specific [place] 1.016 Urine Protein NEGATIVE Urine Glucose (UA) NEGATIVE Urine Ketones NEGATIVE Urine Blood NEGATIVE Urine Nitrite (Reflex) NEGATIVE Urine Bilirubin NEGATIVE Urine Urobilinogen NEGATIVE Leukocyte Esterase Rfl MODERATE H Urine RBC (Auto) 1 Urine WBC (Reflex) 5 Squamous Epi Cells Auto 4 Urine Mucus (Auto) RARE Urine Ascorbic Acid NEGATIVE - Diagnostic Test Radiology reviewed: Reports reviewed Discharge - Discharge Clinical Impression: Right flank pain, Right lateral side pain UTI (urinary tract infection) Qualifiers: Urinary tract infection type: site unspecified Hematuria presence: without hematuria Qualified Code(s): N39.0 - Urinary tract infection, site not specified Condition: Stable Disposition: HOME, SELF-CARE Instructions: Observation for Appendicitis ([facility]), Urinary Tract Infection ([facility]), Cephalexin ([facility]) Additional Instructions: Return immediately for any new or worsening symptoms: Fever, vomiting, worsening pain or lack of improvement You may return tomorrow for repeat examination if your pain symptoms have not improved. Followup with your primary care provider, call tomorrow to make a followup appointment Prescriptions: Cephalexin Monohydrate [Keflex 500 mg Capsule] 500 mg PO BID 5 Days #10 capsule Ondansetron [Zofran Odt 4 mg Tablet] 1 tab PO Q6H #15 tab.rapdis Forms: Return to Work
--- NOTE | 2019-09-03 10:19 | RADIOLOGY REPORT (SQ) ---
EXAM DESCRIPTION: CT ABD/PELVIS NO ORAL OR IV COMPLETED DATE/TIME: 09/03/2019 9:44 am REASON FOR STUDY: Right flank pain COMPARISON: None. TECHNIQUE: CT scan of the abdomen and pelvis performed without intravenous or oral contrast. Images reviewed with lung, soft tissue, and bone windows. Reconstructed coronal and sagittal MPR images revi ewed. All images stored on PACS. All CT scanners at this facility use dose modulation, iterative reconstruction, and/or weight based d osing when appropriate to reduce radiation dose to as low as reasonably achievable (ALARA). [facility]: Dose Right [facility]: CareDose [facility]: Dose Right [facility]: Teradose 4D [facility]: Smart Hubbub RADIATION DOSE: CT Rad equipment meets quality standard of care and radiation dose reduction techniq ues were employed. CTDIvol: 19.0 mGy. DLP: 1029 mGy-cm.mGy. LIMITATIONS: None. FINDINGS: LOWER CHEST: No significant findings. No nodules or infiltrates. NON-CONTRASTED LIVER, SPLEEN, ADRENALS: Evaluation limited by lack of IV contrast. No identified sign ificant masses. PANCREAS: No masses. No peripancreatic inflammatory changes. GALLBLADDER: No identified stones by CT criteria. No inflammatory changes to suggest cholecystitis. RIGHT KIDNEY AND URETER: No suspicious masses. Assessment limited by lack of IV contrast. No signif icant calcifications. No hydronephrosis or hydroureter. LEFT KIDNEY AND URETER: No suspicious masses. Assessment limited by lack of IV contrast. No signifi cant calcifications. No hydronephrosis or hydroureter. AORTA AND RETROPERITONEUM: No aneurysm. No retroperitoneal masses or adenopathy. BOWEL AND PERITONEAL CAVITY: No obvious masses or inflammatory changes. No free fluid. Multiple smal l nonspecific mesenteric and right lower quadrant nodes. APPENDIX: Not visualized. PELVIS, BLADDER, AND ABDOMINAL WALL:No abnormal masses. No free fluid. Bladder normal. BONES: No significant findings. OTHER: No other significant finding. IMPRESSION: Multiple small nonspecific nodes in the mesenteries right lower quadrant. Nonspecific. No other findings. COMMENT: Quality ID # [id number]: Final reports with documentation of one or more dose reduction techniques (e.g., Automated exposure control, adjustment of the mA and/or kV according to patient size, use of iterative reconstruction technique) TECHNICAL DOCUMENTATION: JOB ID: [id number] 2010 [employer]- All Rights Reserved Reading location - IP/workstation name: [email or web address]
[2019-09-03 10:31] LABS: ANISOCYTOSIS 2+; HYPOCHROMASIA 2+; POIKILOCYTOSIS SLIGHT; POLYCHROMASIA SLIGHT
[2019-09-03 10:32] LABS: OVALOCYTES SLIGHT; PLATELET COMMENT ADEQUATE
[2019-09-03 12:06] VITALS: BP 140/72
[2019-09-05 09:40] LABS: PATH REVIEW PATHOLOGIST REVIEWED
== END 2019-09-03 12:05 | disposition home or self-care (01) ==
LOC: ER 09:03
DX: N39.0 Urinary tract infection, site not specified (principal); R10.9 Unspecified abdominal pain; R11.0 Nausea; E66.01 Morbid (severe) obesity due to excess calories; Z90.710 Acquired absence of both cervix and uterus
CPT/HCPCS: 99284; 36415; 87086; 83690; 85025; 80053; 81001; 74176; S0119